=== PATIENT | male | born 1980 | race Caucasian/White ===

== ENCOUNTER 2016-09-04 19:06 | Emergency (ER) | payer OTHER ==
[~2016-09-04] VITALS: Ht 188 cm; Wt 122.8 kg
[~2016-09-04 19:06] MED LIST: ADDERALL XR 3030 MG PO; NOHOMEMEDS; SILVADENE20 GM TP; ULTRAM50 MG PO; VYVANSE70 MG PO
[2016-09-04] MEDS ORDERED: OXAYDO5 MG PO (19:46)
[2016-09-04 20:24] VITALS: BP 149/95
== END 2016-09-04 20:25 | disposition home or self-care (01) ==
LOC: EXP 19:06 → EME 19:06 → EXP 20:25
PROC: 2W3QX1Z Immobilization of Right Lower Leg using Splint (ICD-10-PCS; principal; 2016-09-04)
DX: S92.901A Unspecified fracture of right foot, initial encounter for closed fracture (principal); X50.0XXA Overexertion from strenuous movement or load, initial encounter; F17.200 Nicotine dependence, unspecified, uncomplicated
CPT/HCPCS: 73610; 99281; 99284

== ENCOUNTER 2016-12-18 20:01 | Emergency (ER) | payer OTHER ==
[~2016-12-18] VITALS: Ht 188 cm; Wt 124.7 kg
[~2016-12-18 20:01] MED LIST changes: +OXAYDO5 MG PO
[2016-12-18 20:11] VITALS: BP 129/98
== END 2016-12-18 21:31 | disposition left against medical advice (07) ==
LOC: EME 20:01
DX: S61.412A Laceration without foreign body of left hand, initial encounter (principal); Z53.21 Procedure and treatment not carried out due to patient leaving prior to being seen by health care provider

== ENCOUNTER 2017-03-02 08:05 | Day surgery (SDC) | payer OTHER ==
[~2017-03-02] VITALS: Ht 188 cm; Wt 113.4 kg
[~2017-03-02 08:05] MED LIST changes: +MOTRIN800 MG PO; +PRILOSEC20 MG PO
[2017-03-02 08:35] LABS: HEMATOCRIT 44.8 % (38.0-50.0); MCH 33.3 PG (29.0-34.0); MCHC 35.3 G/DL (30.0-36.0); MCV 94.5 FL (86-99); MEAN PLAT.VOLUME 9.6 uM^3 (9.0-12.4); PLATELET COUNT 235 K/uL (156-360); RBC DIS.WIDTH-CV 12.8 % (11.8-14.6); RBC DIS.WIDTH-SD 44.3 % (39-53); RED BLOOD COUNT 4.74 M/uL (4.00-5.50); WHITE BLOOD COUNT 5.6 K/uL (4.1-10.2)
[2017-03-02 08:38] VITALS: BP 168/91
[2017-03-02 08:57] LABS: ANION GAP 9 MEQ/L (2-14); CHLORIDE 110 MEQ/L (99-109); POTASSIUM 4.4 MEQ/L (3.7-5.4); SAMPLE HEMOLYSIS CHECK 0; SAMPLE ICTERIC CHECK 0; SAMPLE LIPEMIA CHECK 0; SODIUM 142 MEQ/L (136-147); TOTAL BILIRUBIN 0.4 MG/DL (0.0-1.0)
[2017-03-02 09:03] LABS: ALKALINE PHOSPHATASE 105 IU/L (3-129); GFR ESTIMATE (CALCULATED) > 59 mL/min/; GLUCOSE 103 mg/dL (70-99); UREA NITROGEN (BUN) 15 mg/dL (9-23)
[2017-03-02 09:03] LABS: AMPHETAMINES QUANT VALUE 0 NG/ML; BARBITUATES QUANT VALUE 0 NG/ML; BENZODIAZEPINES QUANT VALUE 0 NG/ML; BENZODIAZEPINES, URINE SCREEN Negative (200 ng/mL); OPIATES QUANTITATIVE VALUE 0 NG/ML; PHENCYCLIDINE QUANT VALUE 0 NG/ML
[2017-03-02 13:30] VITALS: BP 175/86
== END 2017-03-02 13:57 | disposition home or self-care (01) ==
LOC: SDC 08:05
PROVIDERS: Ophthalmology
PROC: 08NE3ZZ Release Right Retina, Percutaneous Approach (ICD-10-PCS; principal; 2017-03-02)
PROC: 08N43ZZ Release Right Vitreous, Percutaneous Approach (ICD-10-PCS; principal; 2017-03-02)
PROC: 3E0C33Z Introduction of Anti-inflammatory into Eye, Percutaneous Approach (ICD-10-PCS; principal; 2017-03-02)
PROC: 3E0C329 Introduction of Other Anti-infective into Eye, Percutaneous Approach (ICD-10-PCS; principal; 2017-03-02)
PROC: 085E3ZZ Destruction of Right Retina, Percutaneous Approach (ICD-10-PCS; principal; 2017-03-02)
DX: H33.021 Retinal detachment with multiple breaks, right eye (principal); F17.210 Nicotine dependence, cigarettes, uncomplicated; F14.90 Cocaine use, unspecified, uncomplicated; F12.90 Cannabis use, unspecified, uncomplicated
CPT/HCPCS: 80053; 80306 90; 85027; J0690; J1100; J1170; J2250; J2795; J3010; J3300

== ENCOUNTER 2017-03-17 08:09 | Day surgery (SDC) | payer OTHER ==
[~2017-03-17] VITALS: Ht 188 cm; Wt 113.4 kg
[2017-03-17 08:37] VITALS: BP 158/94
[2017-03-17 09:21] LABS: BARBITUATES QUANT VALUE 0 NG/ML; BENZODIAZEPINES QUANT VALUE 0 NG/ML; BENZODIAZEPINES, URINE SCREEN Negative (200 ng/mL); MARIJUANA QUANT VALUE 0 NG/ML; OPIATES QUANTITATIVE VALUE 0 NG/ML; PHENCYCLIDINE QUANT VALUE 0 NG/ML
[2017-03-17 13:38] VITALS: BP 161/86
[2017-03-17 14:02] VITALS: BP 142/92
== END 2017-03-17 14:10 | disposition home or self-care (01) ==
LOC: SDC 08:09
PROVIDERS: Ophthalmology
DX: H33.021 Retinal detachment with multiple breaks, right eye (principal); H33.41 Traction detachment of retina, right eye; H43.11 Vitreous hemorrhage, right eye; R94.31 Abnormal electrocardiogram [ECG] [EKG]; K21.9 Gastro-esophageal reflux disease without esophagitis
CPT/HCPCS: 80306 90; 93005; J0330; J0690; J1100; J1120; J1885; J2250; J2405; J2795; J3010

== ENCOUNTER 2017-03-23 20:54 | Emergency (ER) | payer OTHER ==
[~2017-03-23] VITALS: Ht 188 cm; Wt 117.9 kg
[2017-03-23 21:15] LABS: BASOPHIL COUNT 0.1 K/uL (0-0.1); EOSINOPHIL (%) 1.1 % (0-5); EOSINOPHIL COUNT 0.1 K/uL (0-0.3); HEMATOCRIT 49.6 % (38.0-50.0); IMMATURE GRANULOCYTE (%) 3.9 % (0.0-0.7); IMMATURE GRANULOCYTE COUNT 0.3 K/uL; INSTRUMENT ABS NEUTROPHIL CT 6.5 K/uL; LYMPHOCYTE COUNT 1.1 K/uL (1.0-2.8); MCH 32.8 PG (29.0-34.0); MCHC 35.3 G/DL (30.0-36.0); MCV 93.1 FL (86-99); MEAN PLAT.VOLUME 9.6 uM^3 (9.0-12.4); MONOCYTE (%) 4.7 % (3-12); MONOCYTE COUNT 0.4 K/uL (0-0.8); NEUTROPHIL (%) 76.3 % (45-76); NEUTROPHIL COUNT 6.5 K/uL (1.8-6.4); PLATELET COUNT 293 K/uL (156-360); RBC DIS.WIDTH-CV 12.8 % (11.8-14.6); RBC DIS.WIDTH-SD 43.8 % (39-53); RED BLOOD COUNT 5.33 M/uL (4.00-5.50); WHITE BLOOD COUNT 8.5 K/uL (4.1-10.2)
[2017-03-23 21:23] LABS: CHLORIDE 113 mEq/L (99-109); POTASSIUM 4.6 mEq/L (3.7-5.4); SODIUM 140 mEq/L (136-147)
[2017-03-23 21:25] LABS: GLUCOSE 175 mg/dL (70-99)
[2017-03-23 21:26] LABS: ANION GAP 12 MEQ/L (2-14)
[2017-03-23 21:28] LABS: SERUM ETHYL ALCOHOL < 10 mg/dL
[2017-03-23 21:29] LABS: GFR ESTIMATE (CALCULATED) > 59 mL/min/
[2017-03-23 21:30] LABS: UREA NITROGEN (BUN) 22 mg/dL (9-23)
[2017-03-23 21:32] LABS: SALICYLATE < 5.0 MG/DL (15-30)
[2017-03-23 21:50] VITALS: BP 141/95
== END 2017-03-23 21:51 | disposition left against medical advice (07) ==
LOC: EME 20:54
PROVIDERS: Emergency Medicine
DX: T40.1X1A Poisoning by heroin, accidental (unintentional), initial encounter (principal); J96.90 Respiratory failure, unspecified, unspecified whether with hypoxia or hypercapnia; R73.9 Hyperglycemia, unspecified; F17.200 Nicotine dependence, unspecified, uncomplicated
CPT/HCPCS: 80048; 81003; 85025; 99281; 99284; G0480; J2310